=== PATIENT | female | born 1975 | race Caucasian/White ===

== ENCOUNTER 2020-06-07 08:59 | Outpatient (REF) | payer OTHER, SELFPAY ==
[2020-06-07 11:41] LABS: Alanine Aminotransferase 24 U/L (0-31); Anion Gap 16 (12-20); Aspartate Amino Transferase 14 U/L (5-31); Blood Urea Nitrogen 13 mg/dL (9-16); Calcium 9.3 mg/dL (8.4-10.2); Carbon Dioxide 24 mmol/L (22-29); Chloride 102 mmol/L (96-108); Cholesterol 159 mg/dL; Estimated Glomerular Filt Rate > 60; Glucose Fasting 160 mg/dL (60-99); HDL Cholesterol 57 mg/dL; LDL Cholesterol Calculated 78 mg/dl; Potassium 4.6 mmol/l (3.3-5.1); Sodium 137 mmol/L (135-145); Triglycerides 120 mg/dL
[2020-06-07 11:48] LABS: Estimated Average Glucose 163 mg/dL; Hemoglobin A1c % 7.3 %
== END 2020-06-07 09:00 | disposition home or self-care (01) ==
LOC: HO.HMGCLDS 08:59
PROVIDERS: PCP Internal Medicine; Visit Provider Internal Medicine
DX: E11.65 Type 2 diabetes mellitus with hyperglycemia (principal); E78.5 Hyperlipidemia, unspecified; I10 Essential (primary) hypertension
CPT/HCPCS: 80048; 80061; 83036; 84450; 84460

== ENCOUNTER 2022-01-25 10:49 | Outpatient (REF) | payer OTHER, SELFPAY ==
[2022-01-25 14:11] LABS: Estimated Average Glucose 272 mg/dL; Hemoglobin A1c % 11.1 %
[2022-01-25 14:22] LABS: Creatinine Urine 58.26 mg/dL; Microalbum/Creatinine Ratio Ur 53.2 ug/mg cr
[2022-01-25 14:36] LABS: Alanine Aminotransferase 35 U/L (0-31); Albumin Level 4.1 g/dL (3.5-5.0); Alkaline Phosphatase 136 U/L (39-117); Anion Gap 17 (12-20); Aspartate Amino Transferase 22 U/L (5-31); Bilirubin Total 0.3 mg/dL (0.0-1.0); Blood Urea Nitrogen 14 mg/dL (9-16); Calcium 9.8 mg/dL (8.4-10.2); Carbon Dioxide 23 mmol/L (22-29); Chloride 97 mmol/L (96-108); Cholesterol 185 mg/dL; Estimated Glomerular Filt Rate 58; Glucose Fasting 434 mg/dL (60-99); HDL Cholesterol 54 mg/dL; LDL Cholesterol Calculated 67 mg/dl; Potassium 5.1 mmol/L (3.3-5.1); Sodium 132 mmol/L (135-145); Total Protein 7.3 g/dL (6.5-8.0); Triglycerides 320 mg/dL
[2022-01-27 09:06] LABS: LDL Cholesterol Direct 100 mg/dL (<100)
== END 2022-01-25 10:50 | disposition home or self-care (01) ==
LOC: HO.HMGCLDS 10:49
PROVIDERS: PCP Internal Medicine; Visit Provider Internal Medicine
DX: E78.5 Hyperlipidemia, unspecified (principal); I10 Essential (primary) hypertension; E11.65 Type 2 diabetes mellitus with hyperglycemia
CPT/HCPCS: 36415; 80053; 80061; 82043; 83036; 83721

== ENCOUNTER 2022-06-23 08:36 | Outpatient (REF) | payer OTHER, SELFPAY ==
--- NOTE | ~2022-06-23 | US_ITS ---
EXAMINATION: US ABDOMEN COMPLETE CLINICAL INFORMATION: Right upper quadrant pain. COMPARISON: Ultrasound abdomen complete dated 10/01/2018 and 01/31/2018. TECHNIQUE: Real-time imaging of the abdominal viscera. FINDINGS: PANCREAS: Normal. ABDOMINAL AORTA: The proximal, mid, and distal segments are normal in caliber. INFERIOR VENA CAVA: Visualized portions are normal. LIVER: The liver is normal in size. The liver contour is normal. There is diffuse increased liver parenchymal echogenicity, consistent with hepatic steatosis. No focal hepatic lesion. There is no intrahepatic biliary duct dilatation seen. GALLBLADDER: The gallbladder is physiologically distended. Multiple mobile gallstones are present. No evidence of gallbladder wall thickening or pericholecystic fluid. COMMON BILE DUCT: Normal in caliber measuring 0.3 cm in diameter. RIGHT KIDNEY: No hydronephrosis. No renal calculi or focal parenchymal lesions. The kidney measures 11.2 cm in maximum dimension. LEFT KIDNEY: No hydronephrosis. No renal calculi or focal parenchymal lesions. The kidney measures 11.0 cm in maximum dimension. SPLEEN: Normal. The spleen measures 9.7 cm in maximum dimension. FREE FLUID: None. US/US abdomen complete IMPRESSION: 1. Cholelithiasis without evidence of cholecystitis. 2. Hepatic steatosis.
[2022-06-23 12:20] LABS: Microalbum/Creatinine Ratio Ur 14.8 ug/mg cr
[2022-06-23 12:22] LABS: Estimated Average Glucose 212 mg/dL
[2022-06-23 13:36] LABS: Alanine Aminotransferase 26 U/L (0-31); Anion Gap 12 (12-20); Aspartate Amino Transferase 16 U/L (5-31); Blood Urea Nitrogen 14 mg/dL (9-16); Calcium 9.1 mg/dL (8.4-10.2); Carbon Dioxide 25 mmol/L (22-29); Chloride 104 mmol/L (96-108); Cholesterol 163 mg/dL; Estimated Glomerular Filt Rate > 60; Glucose Fasting 218 mg/dL (60-99); HDL Cholesterol 61 mg/dL; LDL Cholesterol Calculated 87 mg/dl; Potassium 4.3 mmol/L (3.3-5.1); Sodium 137 mmol/L (135-145); Triglycerides 79 mg/dL; Vitamin D 25-OH Total 52.9 ng/mL (>30)
== END 2022-06-23 08:37 | disposition home or self-care (01) ==
LOC: HO.HMGCX 08:36
PROVIDERS: Absent Provider Internal Medicine; PCP Internal Medicine; Visit Provider Internal Medicine
DX: R10.11 Right upper quadrant pain (principal); R11.2 Nausea with vomiting, unspecified; E11.65 Type 2 diabetes mellitus with hyperglycemia; E78.5 Hyperlipidemia, unspecified; I10 Essential (primary) hypertension
CPT/HCPCS: 36415; 76700; 80048; 80061; 82043; 82306; 83036; 84450; 84460

== ENCOUNTER → 2022-12-01 12:49 | Outpatient (BNVA) | payer OTHER, SELFPAY | PROVIDERS: PCP Internal Medicine; Visit Provider Internal Medicine Endocrinology, Diabetes & Metabolism | DX: E11.65 Type 2 diabetes mellitus with hyperglycemia (principal); E78.5 Hyperlipidemia, unspecified; Z83.3 Family history of diabetes mellitus; Z79.899 Other long term (current) drug therapy; Z79.84 Long term (current) use of oral hypoglycemic drugs | CPT/HCPCS: 82947 ==

== ENCOUNTER 2023-07-12 09:01 | Outpatient (AMB) | payer OTHER, SELFPAY ==
--- NOTE | 2023-07-12 09:03 | MHC.PC.OV ---
Vital Signs 07/12/23 09:07 Height 5 ft 5 in Weight 145 lb 4 oz BMI 24.2 BP 115/78 Blood Pressure Location Lt brachial Position Sitting Pulse 76 Pulse Source Pulse Oximeter Pulse Oximetry (%) 100 Oxygen Delivery Method Room Air Intake Visit Reasons: Medication Follow Up Intake Note: Pt is here to follow up on medications and is fasting today Allergies BEES Allergy (Unknown, Uncoded 07/12/23 09:10) swelling Medication List - Last Reconciled 07/12/23 by Luann Gomez MD atorvastatin 20 mg PO DAILY blood sugar diagnostic (OneTouch Ultra Test strips) As directed tests 4 X/day blood-glucose meter (OneTouch Ultra2 Meter kit) As directed tests 4X/day escitalopram oxalate 20 mg PO DAILY glipizide 5 mg PO QAM lancets (FreeStyle Lancets) twice a day ac lisinopril 10 mg PO DAILY metformin 1,000 mg PO BID 30 days pantoprazole 40 mg PO DAILY Tobacco use date assessed: 07/12/23 Dental Screening Dental Screen Date: 07/12/23 Did you have a dental visit in the last 12 months?: No Did you have a dental problem in the last 6 months where you did not have access to dental care?: No Was dental information given to patient?: Patient has dentist HPI Medication Follow Up HPI Details 47-year-old lady here today for follow-up on her diabetes mellitus and dyslipidemia. Has been taking her medications as directed but does not check her sugars. Has been trying to follow recommended diet but does not get any regular exercise. She had diabetes retinopathy checked at [facility] last September 2022 with no retinopathy seen. Hemoglobin A1c today checked at the clinic is at 7.5%, unchanged from last visit. She has been complaining of feeling tired all the time, no energy, denies chest pain, palpitations, shortness of breath or lightheadedness. Does not want to get any vaccinations. She has depression, currently stable on escitalopram, does not want to see a therapist. Also has been diagnosed to have multiple gallstones, currently asymptomatic, does not want to get any surgical intervention done at present time. Has chronic heartburn, currently controlled on pantoprazole. Has not had any upper endoscopy or screening colonoscopy done , as per recommendation of GI last year and did not do the upper GI series test that was also ordered [facility] Medical History (Updated 07/13/23 @ 00:42 by Luann Gomez MD) Immunization declined Depression Fracture of navicular bone of right foot with routine healing Preeclampsia Heartburn Essential hypertension Cholelithiasis depression Dyslipidemia Diabetes mellitus with hyperglycemia, without long-term current use of insulin Surgical History History of section Family History Father CAD (coronary artery disease) Diabetes mellitus HTN (hypertension) Hyperlipidemia Mother Anxiety Depression Brother GERD (gastroesophageal reflux disease) Son No problems noted. Maternal Grandfather Substance use disorder Maternal Aunt Substance use disorder Maternal Uncle Substance use disorder Social History Housing: House Alcohol intake: former Patient Tobacco Use Status: Former Tobacco user e-Cigarette/Vaping Use: Never Used service: No Current occupational status: unemployed Cognitive needs: No Hearing needs: No Vision needs: Yes Questionnaire PHQ-9 Over the last 2 weeks, how often have you been bothered by any of the following problems? 1. Little interest or pleasure in doing things: several days 2. Feeling down, depressed, or hopeless: not at all 3. Trouble falling or staying asleep, or sleeping too much: several days 4. Feeling tired or having little energy: nearly every day 5. Poor appetite or overeating: several days 6. Feeling bad about yourself - or that you are a failure or have let yourself or your family down: several days 7. Trouble concentrating on things, such as reading the newspaper or watching television: not at all 8. Moving or speaking so slowly that other people could have noticed. Or the opposite - being so fidgety or restless that you have been moving around a lot more than usual: not at all 9. Thoughts that you would be better off or of hurting yourself in some way: not at all Total score: 7 Depression Screening Interpretation: Positive Depression Screening Follow-up: Existing condition and In treatment Depression Screening Done: Yes 13673 - PHQ-9 Billing: Yes Source: Developed by Drs. Efrain Bejarano, AliaDickson Thibodeaux and colleagues, with an educational kenneth from [employer]. Thrive Questionnaire Date Thrive assessed: 07/12/23 I am a: Patient What is your living situation today?: I have a steady place to live Within the past 12 months, did the food you bought not last and you didn't have the money to get more?: Never true Within the past 12 months, did you worry whether your food would run out before you got money to buy more?: Never true Do you have trouble paying for medicines?: No Do you have trouble getting transportation to medical appointments?: No Do you have trouble paying your heating and electricity bill?: No Do you have trouble taking care of your child, family member or friend?: No Do you have trouble with day-to-day activities such as bathing, preparing meals, shopping, managing finances, etc.?: No Are you currently unemployed and looking for a job?: No Are you interested in more education?: No Currently or been in a relationship where the following occur: controlled financially and controlled emotionally AUDIT C Alcohol Use Questionnaire (AUDIT-C) 1. How often do you have a drink containing alcohol?: Never Total Score: 0 PERRY-7 AMB Questionnaire PERRY-7 Date PERRY - 7 assessed: 12/22/21 Source: Developed by Drs. Efrain Bejarano, Dickson Paredes and colleagues, with an educational kenneth from [employer]. Review of Systems Const Reports as per HPI, Denies fever(s), Denies headache(s), Denies malaise, Denies weakness and Reports weight loss Eyes Denies change in vision, Denies eye discharge and Reports other (Up-to-date with her eye exam, goes to [facility] eye care) ENT Denies dizziness, Denies headache(s), Denies nasal congestion, Denies nasal discharge and Denies sore throat Card Denies chest pain, Denies lightheadedness, Denies palpitations and Denies dyspnea Resp Denies chest congestion, Denies cough and Denies dyspnea GI Denies abdominal pain, Denies melena, Denies hematochezia, Denies change in bowel habits and Denies heartburn (Controlled on pantoprazole) Denies urinary frequency, Denies dysuria and Denies urinary urgency Musc Reports no additional complaints Skin/Breast Denies lesions and Denies rash Neuro Denies dizziness, Denies headache(s) and Denies weakness Psych Reports as per HPI Endo Denies polydipsia, Denies polyuria and Denies palpitations Gaston/Lymph Denies easy bleeding and Denies easy bruising Aller/Immun Reports no additional complaints Physical exam (Primary Care) Vital Signs: Last Vital Signs Pulse 76 07/12/23 09:07 BP 115/78 07/12/23 09:07 Pulse Ox 100 07/12/23 09:07 Oxygen Delivery Method Room Air 07/12/23 09:07 BMI result Body Mass Index 24.2 Tobacco/Smoking Status: Tobacco use Status Tobacco use date assessed 07/12/23 07/12/23 09:11 Patient Tobacco Use Status Former Tobacco user 07/12/23 09:03 e-Cigarette/Vaping Use Never Used 07/12/23 09:03 Depression Screening Interpretation: Positive Depression Screening Follow-up: Existing condition and In treatment Thrive Assessment: Date of Thrive Assessment Date Thrive assessed 12/22/21 07/12/23 09:03 Currently or been in a relationship where the following occur: controlled financially and controlled emotionally Const Other: Alert oriented x3, no acute cardiorespiratory distress, ambulatory with normal gait HENMT Mouth: Normal oral and palatal mucosa present and moist mucous membranes Eyes General: appearance normal, both eyes and all related structures Neck Neck: Yes normal visual inspection, Yes full ROM, Yes no lymphadenopathy and Yes supple Resp Auscultation: clear to auscultation bilaterally Cardio Other: S1-S2 present regular rate and rhythm GI Other: Normal bowel sounds, nontender, no mass palpated Back/Spine/Pelvis Back: No back tenderness Skin General skin exam: no rashes or lesions noted Neuro General: gait normal, tone normal, Normal light touch and pain sensation, no focal motor deficits, CN's II-XI intact bilaterally and normal sensation to monofilament Extrem General: Yes normal to inspection, Yes full ROM, Yes no pedal edema and Yes normal gait Psych Appearance: grossly normal and well kempt Mental Status: mental status grossly normal Speech and movement: Normal speech and movement present Affect: Indifferent affect present Attitude: cooperative Thought process: Normal thought process present Thought content: Normal thought content present Results AMB Hemoglobin A1c AMB Hemoglobin A1c 7.5 % Last Edit by Prabha Zafar CMA on 07/12/23 09:42 Results Reviewed Results Reviewed: Laboratory Last Values Hgb A1c (Clinic) 7.5 % (4.0-6.0) H 07/12/23 09:41 Assessment and Plan Assessment & Plan (1) Diabetes mellitus with hyperglycemia, without long-term current use of insulin: Code(s): E11.65 - Type 2 diabetes mellitus with hyperglycemia Plan: Hemoglobin A1c today is 7.5%, unchanged from last check, currently taking metformin 1000 mg twice a day and glipizide 5 mg in am. Will add pioglitazone 15 mg once a day, reinforced importance of following diabetic diet and getting regular exercise. Advised to check blood sugar at least twice a day before meals and keep a log of the readings. Bring on next visit for review. Currently up-to-date with her diabetes retinopathy screening but declines getting vaccines at present time. (2) Dyslipidemia: Code(s): E78.5 - Hyperlipidemia, unspecified Plan: Fasting lipids ordered today. Currently on atorvastatin 20 mg daily, reinforced adherence to healthy eating habits and getting regular exercise. (3) Immunization declined: Code(s): Z28.21 - Immunization not carried out because of patient refusal (4) Essential hypertension: Code(s): I10 - Essential (primary) hypertension Plan: Blood pressure at goal of less than 130/80. Continue lisinopril 10 mg daily. Reinforced importance of following a low sodium diet, getting regular exercise, and lowering stress levels. (5) Depression: Code(s): F32.A - Depression, unspecified Qualifiers: Depression Type: major depressive disorder Major depression recurrence: recurrent Active/Remission status: currently active Major depression episode severity: moderate Qualified Code(s): F33.1 - Major depressive disorder, recurrent, moderate Plan: Declines referral for therapy, will continue on escitalopram 20 mg once a day (6) Fatigue: Code(s): R53.83 - Other fatigue Qualifiers: Fatigue type: chronic, unspecified Qualified Code(s): R53.82 - Chronic fatigue, unspecified Plan: Ordered hemoglobin hematocrit level, basic metabolic panel, vitamin-D level Orders: Orders Aspartate Amino Transferase 07/12/23 E11.65 - Type 2 diabetes mellitus with hyperglycemia, E78.5 - Hyperlipidemia, unspecified, F32.A - Depression, unspecified, I10 - Essential (primary) hypertension, R12 - Heartburn Alanine Aminotransferase 07/12/23 E11.65 - Type 2 diabetes mellitus with hyperglycemia, E78.5 - Hyperlipidemia, unspecified, F32.A - Depression, unspecified, I10 - Essential (primary) hypertension, R12 - Heartburn Microalbumin, Random (w Creat) 07/12/23.65 - Type 2 diabetes mellitus with hyperglycemia, E78.5 - Hyperlipidemia, unspecified, F32.A - Depression, unspecified, I10 - Essential (primary) hypertension, R12 - Heartburn AMB Hemoglobin A1c 07/12/23 E11.65 - Type 2 diabetes mellitus with hyperglycemia, E78.5 - Hyperlipidemia, unspecified, F32.A - Depression, unspecified, I10 - Essential (primary) hypertension, R12 - Heartburn Basic Metabolic Panel Fasting 07/12/23.65 - Type 2 diabetes mellitus with hyperglycemia, E78.5 - Hyperlipidemia, unspecified, F32.A - Depression, unspecified, I10 - Essential (primary) hypertension, R12 - Heartburn Lipid Panel 07/12/23.65 - Type 2 diabetes mellitus with hyperglycemia, E78.5 - Hyperlipidemia, unspecified, F32.A - Depression, unspecified, I10 - Essential (primary) hypertension, R12 - Heartburn Hemoglobin and Hematocrit 07/12/23.65 - Type 2 diabetes mellitus with hyperglycemia, E78.5 - Hyperlipidemia, unspecified, F32.A - Depression, unspecified, I10 - Essential (primary) hypertension, R12 - Heartburn Vitamin D 25-OH Total 07/12/23.65 - Type 2 diabetes mellitus with hyperglycemia, E78.5 - Hyperlipidemia, unspecified, F32.A - Depression, unspecified, I10 - Essential (primary) hypertension, R12 - Heartburn Medications: New pioglitazone 15 mg PO DAILY 90 tabs 1RF Changed From blood-glucose meter ([employer] Ultra2 Meter kit) As directed tests 4X/day 1 ea 0RF To blood-glucose meter As directed tests 4X/day 1 ea 0RF Refilled lancets (FreeStyle Lancets) twice a day ac 100 ea 5RF E11.65 - Type 2 diabetes mellitus with hyperglycemia blood sugar diagnostic (OneTouch Ultra Test strips) As directed tests 4 X/day 100 ea 5RF Coding Level of Care Code Est Pt Level 4 (61393) Diagnoses Diabetes mellitus with hyperglycemia, without long-term current use of insulin E11.65 Dyslipidemia E78.5 Immunization declined Z28.21 Essential hypertension I10 Moderate episode of recurrent major depressive disorder F33.1 Depression Type: major depressive disorder Major depression recurrence: recurrent Active/Remission status: currently active Major depression episode severity: moderate Chronic fatigue R53.82 Fatigue type: chronic, unspecified
[2023-07-12 09:07] VITALS: BP 115/78; PULSE 76; O2SAT 100; BMI 24.2
== END 2023-07-12 09:44 | disposition home or self-care (01) ==
PROVIDERS: PCP Internal Medicine; Visit Provider Internal Medicine
DX: E11.65 Type 2 diabetes mellitus with hyperglycemia (principal); F33.1 Major depressive disorder, recurrent, moderate; E78.5 Hyperlipidemia, unspecified; Z28.21 Immunization not carried out because of patient refusal; I10 Essential (primary) hypertension; R53.82 Chronic fatigue, unspecified
CPT/HCPCS: 83036; 99214

== ENCOUNTER 2023-07-12 09:37 | Outpatient (REF) | payer OTHER, SELFPAY | END 2023-07-12 09:38 | disposition home or self-care (01) | LOC: HO.LAB 09:37 | PROVIDERS: Visit Provider Internal Medicine | DX: Z13.89 Encounter for screening for other disorder (principal) ==

== ENCOUNTER 2023-07-12 09:46 | Outpatient (REF) | payer OTHER, SELFPAY ==
[2023-07-12 13:44] LABS: Hematocrit 31.1 % (37.0-47.0); Hemoglobin 8.8 g/dl (12.0-16.0)
[2023-07-12 14:12] LABS: Alanine Aminotransferase 14 U/L (0-31); Anion Gap 12 (12-20); Aspartate Amino Transferase 15 U/L (5-31); Blood Urea Nitrogen 18 mg/dL (9-16); Calcium 9.6 mg/dL (8.4-10.2); Carbon Dioxide 25 mmol/L (22-29); Chloride 104 mmol/L (96-108); Cholesterol 146 mg/dL (<200); Estimated Glomerular Filt Rate > 60; Glucose Fasting 162 mg/dL (60-99); HDL Cholesterol 61 mg/dL (>40); LDL Cholesterol Calculated 73 mg/dL (<100); Potassium 3.8 mmol/L (3.3-5.1); Sodium 137 mmol/L (135-145); Triglycerides 61 mg/dL (<150)
[2023-07-12 14:13] LABS: Creatinine Urine 200.54 mg/dL; Microalbum/Creatinine Ratio Ur 4.9 ug/mg cr (<30)
[2023-07-12 14:16] LABS: Vitamin D 25-OH Total 82.6 ng/mL (>30)
== END 2023-07-12 09:47 | disposition home or self-care (01) ==
LOC: HO.HMGCLDS 09:46
PROVIDERS: PCP Internal Medicine; Visit Provider Internal Medicine
DX: E11.65 Type 2 diabetes mellitus with hyperglycemia (principal); E78.5 Hyperlipidemia, unspecified; I10 Essential (primary) hypertension; F32.A Depression, unspecified; R12 Heartburn
CPT/HCPCS: 36415; 80048; 80061; 82043; 82306; 82570; 84450; 84460; 85014; 85018

== ENCOUNTER 2024-11-11 09:22 | Outpatient (REF) | payer OTHER, SELFPAY ==
[2024-11-11 14:49] LABS: Creatinine Urine 177.71 mg/dL; Microalbum/Creatinine Ratio Ur 5.6 ug/mg cr (<30)
== END 2024-11-11 09:23 | disposition home or self-care (01) ==
LOC: HO.LAB 09:22
PROVIDERS: PCP Internal Medicine; Visit Provider Internal Medicine
DX: Z00.01 Encounter for general adult medical examination with abnormal findings (principal); R12 Heartburn; F41.9 Anxiety disorder, unspecified; F32.A Depression, unspecified; E11.65 Type 2 diabetes mellitus with hyperglycemia; E78.5 Hyperlipidemia, unspecified; Z79.899 Other long term (current) drug therapy; Z71.89 Other specified counseling; Z28.21 Immunization not carried out because of patient refusal
CPT/HCPCS: 82043; 82570; 83036; 96127

== ENCOUNTER 2024-11-11 09:22 | Outpatient (AMB) | payer OTHER, SELFPAY ==
--- NOTE | 2024-11-11 09:30 | MHC.PC.OV ---
Vital Signs 11/11/24 09:39 Height 5 ft 4.5 in Weight 147 lb BMI 24.8 BP 112/84 Position Sitting Respiration 16 Pulse 87 Pulse Source Pulse Oximeter Temp 98.4 F Temp Source Oral Pulse Oximetry (%) 98 Oxygen Delivery Method Room Air Intake Visit Reasons: Annual PE Intake Note: Pt is here today for PE Allergies BEES Allergy (Unknown, Uncoded 11/11/24 09:45) swelling Medication List - Last Reconciled 11/11/24 by Luann Gomez MD atorvastatin 20 mg PO DAILY blood sugar diagnostic (FreeStyle Test strips) As directed to test blood sugar once a day blood-glucose meter As directed tests 4X/day escitalopram oxalate 20 mg PO DAILY glipizide 5 mg PO QAM lancets (FreeStyle Lancets) twice a day ac lisinopril 10 mg PO DAILY metformin 1,000 mg PO BID pantoprazole 40 mg PO DAILY Tobacco use date assessed: 11/11/24 Dental Screening Dental Screen Date: 11/11/24 Did you have a dental visit in the last 12 months?: No Did you have a dental problem in the last 6 months where you did not have access to dental care?: No Was dental information given to patient?: Patient has dentist HPI Annual PE HPI Details 49-year-old lady with type 2 diabetes mellitus, currently on metformin and glipizide, has history of depression controlled on escitalopram, hypertension, dyslipidemia, and history of anemia, here today for her physical exam. She is up-to-date with her cervical cancer screening, last done in [place] 10/18/2022 with negative findings. [facility] Medical History (Updated 11/11/24 @ 10:13 by Luann Gomez MD) Anxiety and depression Anemia Immunization declined Depression Fracture of navicular bone of right foot with routine healing Preeclampsia Heartburn Essential hypertension Cholelithiasis depression Dyslipidemia Diabetes mellitus with hyperglycemia, without long-term current use of insulin Surgical History History of section Family History Father CAD (coronary artery disease) Diabetes mellitus HTN (hypertension) Hyperlipidemia Mother Anxiety Depression Brother GERD (gastroesophageal reflux disease) Son No problems noted. Maternal Grandfather Substance use disorder Maternal Aunt Substance use disorder Maternal Uncle Substance use disorder Social History Housing: House Alcohol intake: former Patient Tobacco Use Status: Former Tobacco user e-Cigarette/Vaping Use: Never Used service: No Current occupational status: unemployed Cognitive needs: No Hearing needs: No Vision needs: Yes Questionnaire PHQ-9 Over the last 2 weeks, how often have you been bothered by any of the following problems? 82352 - PHQ-9 Billing: Patient declined-do not bill Source: Developed by Drs. Efrain Bejarano, Alia Nolasco, Dickson Nguyễn and colleagues, with an educational kenneth from [employer]. Thrive Questionnaire Date Thrive assessed: 11/11/24 I am a: Patient What is your living situation today?: I have a steady place to live Within the past 12 months, did the food you bought not last and you didn't have the money to get more?: Sometimes True Within the past 12 months, did you worry whether your food would run out before you got money to buy more?: Sometimes True Do you have trouble paying for medicines?: No Do you have trouble getting transportation to medical appointments?: No Do you have trouble paying your heating and electricity bill?: Yes Do you have trouble taking care of your child, family member or friend?: No Do you have trouble with day-to-day activities such as bathing, preparing meals, shopping, managing finances, etc.?: No Are you currently unemployed and looking for a job?: Yes Are you interested in more education?: No THRIVE Score: 3 AUDIT C Alcohol Use Questionnaire (AUDIT-C) 1. How often do you have a drink containing alcohol?: Never Total Score: 0 PERRY-7 AMB Questionnaire PERRY-7 Date PERRY - 7 assessed: 11/11/24 Feeling nervous, anxious, or on edge: 3 = Nearly every day Not being able to stop or control worryin = Several days Worrying too much about different things: 2 = More than half the days Trouble relaxin = More than half the days Being so restless that it is hard to sit still: 1 = Several days Becoming easily annoyed or irritable: 0 = Not at all Feeling afraid as if something awful might happen: 0 = Not at all Total PERRY-7 score (0-4 normal; 5-9 mild; 10-14 moderate; 15-21 severe): 9 Source: Developed by Drs. Efrain Bejarano, Alia Nolasco, Dickson Nguyễn and colleagues, with an educational kenneth from [employer]. Physical exam (Primary Care) Vital Signs: Last Vital Signs Temp 98.4 F 11/11/24 09:39 Pulse 87 11/11/24 09:39 Resp 16 11/11/24 09:39 BP 112/84 11/11/24 09:39 Pulse Ox 98 11/11/24 09:39 Oxygen Delivery Method Room Air 11/11/24 09:39 BMI result Body Mass Index 24.8 Tobacco/Smoking Status: Tobacco use Status Tobacco use date assessed 11/11/24 11/11/24 09:44 Patient Tobacco Use Status Former Tobacco user 11/11/24 09:30 e-Cigarette/Vaping Use Never Used 11/11/24 09:30 Thrive Assessment: Date of Thrive Assessment Date Thrive assessed 07/12/23 11/11/24 09:30 Results AMB Hemoglobin A1c AMB Hemoglobin A1c 6.3 % Last Edit by Samantha Leone CMA on 11/11/24 09:48 Results Reviewed Results Reviewed: Laboratory Last Values Hgb A1c (Clinic) 6.3 % (4.0-6.0) H 11/11/24 09:47 Coding Diagnoses Heartburn R12 Assessment & Plan Assessment & Plan (1) Heartburn: Code(s): R12 - Heartburn Category: Medical Orders: Orders AMB Hemoglobin A1c Today E11.65 - Type 2 diabetes mellitus with hyperglycemia Medications: New hydroxyzine HCl 10 mg PO BEDTIME PRN 30 tabs 1RF Acute anxiety attacks F32.A - Depression, unspecified, F41.9 - Anxiety disorder, unspecified Discontinued escitalopram oxalate Discontinued Reason: Doctor's Order 20 mg PO DAILY 90 tabs 0RF
[2024-11-11 09:39] VITALS: BP 112/84; PULSE 87; RESP 16; TEMP 36.9; O2SAT 98; BMI 24.8
== END 2024-11-11 10:47 | disposition home or self-care (01) ==
LOC: HO.HMCC 09:23
PROVIDERS: PCP Internal Medicine; Visit Provider Internal Medicine
DX: E11.65 Type 2 diabetes mellitus with hyperglycemia (principal)

== ENCOUNTER 2025-04-07 07:41 | Outpatient (REF) | payer OTHER, SELFPAY ==
[2025-04-07 12:47] LABS: Anion Gap 13 (12-20)
[2025-04-07 12:52] LABS: Alanine Aminotransferase 14 U/L (0-31); Albumin Level 4.4 g/dL (3.5-5.0); Alkaline Phosphatase 66 U/L (39-117); Aspartate Amino Transferase 20 U/L (5-31); Blood Urea Nitrogen 19 mg/dL (9-16); Calcium 9.3 mg/dL (8.4-10.2); Carbon Dioxide 24 mmol/L (22-29); Chloride 107 mmol/L (96-108); Cholesterol 171 mg/dL (<200); Estimated Glomerular Filt Rate > 60; HDL Cholesterol 68 mg/dL (>40); Iron 13 mcg/dL (30-160); Percent Iron Saturation 3 % (15-50); Potassium 4.1 mmol/L (3.3-5.1); Sodium 140 mmol/L (135-145); Total Iron Binding Capacity 399 mcg/dL (228-428); Total Protein 7.2 g/dL (6.5-8.0); Triglycerides 116 mg/dL (<150); Unsaturated Iron Binding 386 ug/dL
== END 2025-04-07 07:42 | disposition home or self-care (01) ==
LOC: HO.HMGCLDS 07:41
PROVIDERS: PCP Internal Medicine; Visit Provider Internal Medicine
DX: I10 Essential (primary) hypertension (principal); E11.65 Type 2 diabetes mellitus with hyperglycemia; E78.5 Hyperlipidemia, unspecified; K80.20 Calculus of gallbladder without cholecystitis without obstruction; D64.9 Anemia, unspecified; F33.1 Major depressive disorder, recurrent, moderate; R12 Heartburn
CPT/HCPCS: 36415; 80053; 80061; 82306; 83036; 83540; 85025

== ENCOUNTER 2025-04-29 09:31 | Outpatient (AMB) | payer OTHER, SELFPAY ==
--- NOTE | 2025-04-29 09:32 | A.OFFPC_ITS ---
Vital Signs 04/29/25 09:33 Height 5 ft 4.5 in Weight 149 lb BMI 25.2 BP 144/80 H Blood Pressure Location Lt brachial Position Sitting Respiration 16 Pulse 96 Pulse Source Pulse Oximeter Temp 98.6 F Temp Source Oral Pulse Oximetry (%) 100 Oxygen Delivery Method Room Air Intake Visit Reasons: 3m follow up reschedule Intake Note: Pt is here today for her 3mo. 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 Required: No Allergies BEES Allergy (Unknown, Uncoded 05/03/25 21:11) swelling Medication List - Last Reconciled 05/03/25 by Luann Gomez MD atorvastatin 20 mg PO DAILY blood sugar diagnostic (FreeStyle Test strips) As directed to test blood sugar once a day blood-glucose meter As directed tests 4X/day ferrous fumarate 324 mg PO DAILY glipizide 5 mg PO QAM lancets (FreeStyle Lancets) twice a day ac lisinopril 10 mg PO DAILY lorazepam 0.5 mg PO DAILY PRN metformin 1,000 mg PO BID pantoprazole 40 mg PO DAILY Tobacco use date assessed: 04/29/25 Dental Screening Dental Screen Date: 04/29/25 Did you have a dental visit in the last 12 months?: No Did you have a dental problem in the last 6 months where you did not have access to dental care?: No Was dental information given to patient?: Patient has dentist HPI 3m follow up reschedule HPI Details 49-year-old female presenting with anemia and diabetes mellitus. The anemia has been worsening, has pica , craving ice and sugar . She reports not taking iron supplements regularly as she is afraid of getting constipated again, which most likely is the reason for her fatigue, difficulty sleeping. She has diabetes mellitus with a recent A1c of 6.7%. She attributes her elevated blood glucose levels to poor dietary habits, and no exercise . Overdue for her the diabetic retinopathy screening, previously was being seen at [facility]. Has dyslipidemia currently on atorvastatin 20 mg daily with latest fasting lipids within normal limits. Has generalized anxiety disorder, would like to have something on hand to take as needed for acute anxiety attacks. He previously was on escitalopram 20 mg daily which she states did not really help, and has been prescribed hydroxyzine which she does not want to take as it makes her very sleepy. Declined all immunizations offered [facility] Medical History (Updated 05/03/25 @ 21:33 by Luann Gomez MD) Colon cancer screening declined Generalized anxiety disorder Iron deficiency anemia Immunization declined Depression Fracture of navicular bone of right foot with routine healing Preeclampsia Heartburn Essential hypertension Cholelithiasis depression Dyslipidemia Diabetes mellitus with hyperglycemia, without long-term current use of insulin Surgical History History of section Family History Father CAD (coronary artery disease) Diabetes mellitus HTN (hypertension) Hyperlipidemia Mother Anxiety Depression Brother GERD (gastroesophageal reflux disease) Son No problems noted. Maternal Grandfather Substance use disorder Maternal Aunt Substance use disorder Maternal Uncle Substance use disorder Social History Housing: House Alcohol intake: former Patient Tobacco Use Status: Former Tobacco user e-Cigarette/Vaping Use: Never Used service: No Current occupational status: unemployed Cognitive needs: No Hearing needs: No Vision needs: Yes Questionnaire PHQ-9 Over the last 2 weeks, how often have you been bothered by any of the following problems? 1. Little interest or pleasure in doing things: not at all 2. Feeling down, depressed, or hopeless: not at all 3. Trouble falling or staying asleep, or sleeping too much: not at all 4. Feeling tired or having little energy: not at all 5. Poor appetite or overeating: not at all 6. Feeling bad about yourself - or that you are a failure or have let yourself or your family down: not at all 7. Trouble concentrating on things, such as reading the newspaper or watching television: not at all 8. Moving or speaking so slowly that other people could have noticed. Or the opposite - being so fidgety or restless that you have been moving around a lot more than usual: not at all 9. Thoughts that you would be better off or of hurting yourself in some way: not at all Total score: 0 Depression Screening Interpretation: Negative Depression Screening Done: Yes 64515 - PHQ-9 Billing: Yes Source: Developed by Drs. Efrain Bejarano, Alia Dickson Hurley and colleagues, with an educational kenneth from [employer] Thrive Questionnaire Date Thrive assessed: 11/11/24 I am a: Patient What is your living situation today?: I choose not to answer this question Within the past 12 months, did the food you bought not last and you didn't have the money to get more?: I choose not to answer this question Within the past 12 months, did you worry whether your food would run out before you got money to buy more?: I choose not to answer this question Do you have trouble paying for medicines?: I choose not to answer this question Do you have trouble getting transportation to medical appointments?: I choose not to answer this question Do you have trouble paying your heating and electricity bill?: I choose not to answer this question Do you have trouble taking care of your child, family member or friend?: I choose not to answer this question Do you have trouble with day-to-day activities such as bathing, preparing meals, shopping, managing finances, etc.?: I choose not to answer this question Are you currently unemployed and looking for a job?: I choose not to answer this question Are you interested in more education?: I choose not to answer this question Please select the resources that you would like help with: None Currently or been in a relationship where the following occur: I choose not to answer THRIVE Score: 0 AUDIT C Alcohol Use Questionnaire (AUDIT-C) 1. How often do you have a drink containing alcohol?: Never Total Score: 0 PERRY-7 AMB Questionnaire PERRY-7 Date PERRY - 7 assessed: 11/11/24 Feeling nervous, anxious, or on edge: 1 = Several days Not being able to stop or control worryin = Several days Worrying too much about different things: 2 = More than half the days Trouble relaxin = Several days Being so restless that it is hard to sit still: 0 = Not at all Becoming easily annoyed or irritable: 2 = More than half the days Feeling afraid as if something awful might happen: 0 = Not at all Total PERRY-7 score (0-4 normal; 5-9 mild; 10-14 moderate; 15-21 severe): 7 Source: Developed by Drs. Efrain Bejarano, Dickson Paredes and colleagues, with an educational kenneth from [employer] PERRY-7 Assessment Billing PERRY-7 Assessment Tool: PERRY-7 Assessment 75698 (Declined taking anything on a daily basis, prescription sent for lorazepam to take as needed, refused therapy) Review of Systems Const Denies fever(s), Denies headache(s) and Reports weight loss Eyes Denies change in vision and Denies eye discharge ENT Denies dizziness, Denies headache(s), Denies nasal congestion, Denies nasal discharge and Denies sore throat Card Denies chest pain, Denies lightheadedness, Denies palpitations and Denies dyspnea Resp Denies chest congestion, Denies cough and Denies dyspnea GI Denies abdominal pain, Denies melena, Denies hematochezia, Denies change in bowel habits and Denies heartburn (Controlled on pantoprazole) Denies urinary frequency, Denies dysuria and Denies urinary urgency Musc Reports no additional complaints Skin/Breast Denies lesions and Denies rash Neuro Denies dizziness and Denies headache(s) Psych Reports as per HPI Endo Denies polydipsia, Denies polyuria and Denies palpitations Gaston/Lymph Denies easy bleeding and Denies easy bruising Aller/Immun Reports no additional complaints Physical exam (Primary Care) Vital Signs: Last Vital Signs Temp 98.6 F 04/29/25 09:33 Pulse 96 04/29/25 09:33 Resp 16 04/29/25 09:33 BP 144/80 H 04/29/25 09:33 Pulse Ox 100 04/29/25 09:33 Oxygen Delivery Method Room Air 04/29/25 09:33 BMI result Body Mass Index 25.2 Tobacco/Smoking Status: Tobacco use Status Tobacco use date assessed 04/29/25 04/29/25 09:36 Patient Tobacco Use Status Former Tobacco user 04/29/25 09:33 e-Cigarette/Vaping Use Never Used 04/29/25 09:33 PHQ-9: PHQ-9 Score PHQ-9: Total score 0 04/29/25 10:30 Depression Screening Interpretation: Negative Thrive Assessment: Date of Thrive Assessment Date Thrive assessed 11/11/24 04/29/25 09:33 Currently or been in a relationship where the following occur: I choose not to answer Const Other: Alert oriented x3, no acute cardiorespiratory distress, ambulatory with normal gait HENMT Mouth: Normal oral and palatal mucosa present and moist mucous membranes Eyes Other: Pain palpebral conjunctiva, anicteric Pupils: Equal, round and reactive pupils present EOM: EOMs intact bilaterally Neck Neck: Yes normal visual inspection, Yes full ROM, Yes no lymphadenopathy and Yes supple Resp Auscultation: clear to auscultation bilaterally Cardio Other: S1-S2 present regular rate and rhythm GI Other: Normal bowel sounds, nontender, no mass palpated 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) Back/Spine/Pelvis Back: No back tenderness Skin General skin exam: no rashes or lesions noted Neuro General: gait normal, tone normal, Normal light touch and pain sensation, no focal motor deficits, CN's II-XI intact bilaterally and normal sensation to monofilament Cranial nerves: Yes Equal, round and reactive pupils present Extrem General: Yes normal to inspection, Yes full ROM, Yes no pedal edema and Yes normal gait Psych Appearance: grossly normal and well kempt Mental Status: mental status grossly normal Speech and movement: Normal speech and movement present Affect: Indifferent affect present Results Reviewed Results Reviewed: connie: Latia Magana Age/Sex: 49/F : 1975 Unit#: [id number] Attend Dr: Luann Gomez MD Re04/07/25 Status: DEP REF Location: [facility] Disch: SPEC : [id number] JESUS: 04/07/25 STATUS: COMP REQ : [id number] RECD: 04/07/25-[address]: Luann Gomez MD COMP: 04/07/25 ENTERED: 04/07/25 [facility] DR: ORDERED: CBC Auto Diff Test Result Flag Reference WBC 8.6 4.8-10.8 X10*3/uL RBC 4.63 4.20-5.50 X10*6/uL HGB 8.2 L 12.0-16.0 g/dl HCT 30.7 L 37.0-47.0 % MCV 66.3 L 80.0-98.0 fL MCH 17.7 L 27.0-33.0 pg MCHC 26.7 L 31.0-35.0 g/dl RDW 20.3 H 11.0-16.0 % PLT 586 H 160-400 X10*3/uL MPV 8.9 L 9.4-12.3 fL Neut Pct Auto 55.2 45-73 % ImGran Pct Auto 0.3 0.0-0.4 % Lymp Pct Auto 32.6 20-40 % [place] Pct Auto 7.8 2-11 % Eos Pct Auto 2.4 0-4 % Baso Pct Auto 1.7 0-2 % NRBC Pct Auto 0.0 0.0-0.2 /100WBC ANC Neut Abs # 4.7 2.0-8.3 x10*3/uL ImGran Abs Auto 0.03 0.00-0.03 X10*3/uL Lymph Abs Auto 2.8 1.2-4.9 X10*3/uL [place] Abs Auto 0.7 0.1-1.2 X10*3/uL Eos Abs Auto 0.2 0.0-0.4 X10*3/uL Baso Abs Auto 0.2 0.0-0.2 X10*3/uL NRBC Abs Auto 0.000 0.0-0.012 X10*3/uL Name: Latia Magana Age/Sex: 49/F : 1975 Unit#: [id number] Attend Dr: Luann Gomez MD Re04/07/25 Status: DEP REF Location: [facility] Disch: SPEC : [id number] JESUS: 04/07/25 STATUS: COMP REQ : [id number] RECD: 04/07/25-[address]: Luann Gomez MD COMP: 04/07/25-1242 ENTERED: 04/07/[address]: ORDERED: CMP Fast, IRON PROF, Lipid Panel, Vitamin D 25-OH Test Result Flag Reference Sodium 140 135-145 mmol/L Potassium 4.1 3.3-5.1 mmol/L CL 107 96-108 mmol/L CO2 24 22-29 mmol/L Gap 13 12-20 BUN 19 H 9-16 mg/dL Creat 0.93 0.5-1.4 mg/dL eGFR > 60 Chronic Kidney Disease: Estimated GFR < 60 mL/min/1.73m2 Severe Kidney Disease: Estimated GFR < 15 mL/min/1.73m2 FBS 164 H 60-99 mg/dL A fasting glucose of 126 mg/dl or greater on more than one occasion is considered diagnostic of diabetes. CA 9.3 8.4-10.2 mg/dL Iron 13 L 30-160 mcg/dL TIBC 399 228-428 mcg/dL Saturation 3 L 15-50 % UIBC 386 ug/dL Total Bili 0.3 0.0-1.0 mg/dL AST (GOT) 20 5-31 U/L ALT (GPT) 14 0-31 U/L Protein, Total 7.2 6.5-8.0 g/dL Alb 4.4 3.5-5.0 g/dL Triglyceride 116 <150 mg/dL Desirable Triglyceride: less than 150 mg/dL Borderline High Triglyceride 150-199 mg/dL High Triglyceride: 200-499 mg/dL Very High Triglyceride: greater than or equal to 5OO mg/dL Cholesterol 171 <200 mg/dL Desirable Cholesterol: less than 200 mg/dL Borderline High Cholesterol: 200-239 mg/dL High Cholesterol: greater than 239 mg/dL LDL Calculated 80 <100 mg/dL Desirable LDL: less than 100 mg/dL Near Optimal/Above Optimal LDL: 110-129 mg/dL Borderline High LDL: 130-159 mg/dL High LDL: 160-189 mg/dL Very High LDL: greater than or equal to 190 mg/dL HDL 68 >40 mg/dL Desirable HDL: greater than 40 mg/dL Note: This HDL assay may give artificially low results in patients with liver disease. Alk Phos 66 39-117 U/L Vitamin D 25-OH 67.4 >30 ng/mL Health Based Reference Values* < 20 ng/mL Deficient 20-30 ng/mL Insufficient > 30 ng/mL Sufficient Laboratory Tests 11/11/24 04/07/25 09:22 07:56 Estimat Average Glucose 146 Hemoglobin A1c % 6.7 H Urine Creatinine 177.71 Urine Microalbumin 10.0 Microalb/Creat Ratio 5.6 Coding Level of Care Code Est Pt Level 4 (66337) Complex EM visit Add On G2211 Diagnoses Iron deficiency anemia, unspecified iron deficiency anemia type D50.9 Iron deficiency anemia type: unspecified iron deficiency Diabetes mellitus with hyperglycemia, without long-term current use of insulin E11.65 Dyslipidemia E78.5 Essential hypertension I10 Immunization declined Z28.21 Generalized anxiety disorder F41.1 Colon cancer screening declined Z53.20 Additional Codes PERRY-7 Assessment Billing - PERRY-7 Assessment Tool: PERRY-7 Assessment 65178 ([id number]) PHQ-9 - 50379 - PHQ-9 Billing: Yes ([id number]) Assessment & Plan Assessment & Plan (1) Iron deficiency anemia: Code(s): D50.9 - Iron deficiency anemia, unspecified Category: Medical Qualifiers: Iron deficiency anemia type: unspecified iron deficiency Qualified Code(s): D50.9 - Iron deficiency anemia, unspecified Plan: Discuss results of recent CBC and iron profile with patient, indicative of severe iron-deficiency anemia. Patient again reminded to take her iron supplements daily,, is afraid of getting constipated, advised to take docusate sodium 100-200 mg daily to soften stool, may take an occasional senna as needed for constipation. Advised to get colon cancer screening either through colonoscopy or if it Cologuard but patient does not want to get get either testing will repeat another CBC, iron profile ferritin level in 3 months (2) Diabetes mellitus with hyperglycemia, without long-term current use of insulin: Code(s): E11.65 - Type 2 diabetes mellitus with hyperglycemia Category: Medical Plan: Continue metformin 1000 mg 1 tablet twice a day reinforced importance of adhering to healthy eating habits and regular exercise, reminded patient to get her yearly diabetes eye screening to check for retinopathy. Declined flu vaccine pneumonia vaccine offered on this visit (3) Dyslipidemia: Code(s): E78.5 - Hyperlipidemia, unspecified Category: Medical Plan: Reviewed recent fasting lipid profile with patient with levels within normal limits . Continue atorvastatin 20 mg daily , in addition to adherence to low-cholesterol diet and regular exercise, at least 30 minutes 3 to 4 times a week. Advised patient to make healthy food choices, eat more fruits, vegetables, whole grains, wild caught fish and low-fat dairy. Limit amount of meat and fried or fatty food products, as well as processed foods and fast foods. Follow-up scheduled with repeat fasting lipid panel in 3 months. (4) Essential hypertension: Code(s): I10 - Essential (primary) hypertension Category: Medical Plan: Continue lisinopril 10 mg daily (5) Immunization declined: Code(s): Z28.21 - Immunization not carried out because of patient refusal Category: Medical Plan: Patient refused all recommended vaccines (6) Generalized anxiety disorder: Code(s): F41.1 - Generalized anxiety disorder Category: Medical Plan: Patient declined taking any maintenance medication, does not want hydroxyzine due to the sedating effects of the medication. Prescription sent for a short course of lorazepam 0.5 mg to take 1 tablet as needed for acute anxiety attacks, 10 tablets prescribed with no refill (7) Colon cancer screening declined: Code(s): Z53.20 - Procedure and treatment not carried out because of patient's decision for unspecified reasons Category: Medical Plan: Patient does not want to get any colonoscopy procedure or Cologuard testing done Orders: Orders Lipid Panel 07/18/25 D50.9 - Iron deficiency anemia, unspecified, E11.65 - Type 2 diabetes mellitus with hyperglycemia, E78.5 - Hyperlipidemia, unspecified, F41.1 - Generalized anxiety disorder, I10 - Essential (primary) hypertension, Z28.21 - Immunization not carried out because of patient refusal, Z53.20 - Procedure and treatment not carried out because of patient's decision for unspecified reasons Complete Blood Count Auto Diff 07/18/25 D50.9 - Iron deficiency anemia, unspecified, E11.65 - Type 2 diabetes mellitus with hyperglycemia, E78.5 - Hyperlipidemia, unspecified, F41.1 - Generalized anxiety disorder, I10 - Essential (primary) hypertension, Z28.21 - Immunization not carried out because of patient refusal, Z53.20 - Procedure and treatment not carried out because of patient's decision for unspecified reasons Ferritin 07/18/25 D50.9 - Iron deficiency anemia, unspecified, E11.65 - Type 2 diabetes mellitus with hyperglycemia, E78.5 - Hyperlipidemia, unspecified, F41.1 - Generalized anxiety disorder, I10 - Essential (primary) hypertension, Z28.21 - Immunization not carried out because of patient refusal, Z53.20 - Procedure and treatment not carried out because of patient's decision for unspecified reasons IRON PROFILE 07/18/25 D50.9 - Iron deficiency anemia, unspecified, E11.65 - Type 2 diabetes mellitus with hyperglycemia, E78.5 - Hyperlipidemia, unspecified, F41.1 - Generalized anxiety disorder, I10 - Essential (primary) hypertension, Z28.21 - Immunization not carried out because of patient refusal, Z53.20 - Procedure and treatment not carried out because of patient's decision for unspecified reasons Alanine Aminotransferase 07/18/25 D50.9 - Iron deficiency anemia, unspecified, E11.65 - Type 2 diabetes mellitus with hyperglycemia, E78.5 - Hyperlipidemia, unspecified, F41.1 - Generalized anxiety disorder, I10 - Essential (primary) hypertension, Z28.21 - Immunization not carried out because of patient refusal, Z53.20 - Procedure and treatment not carried out because of patient's decision for unspecified reasons Basic Metabolic Panel Fasting 07/18/25 D50.9 - Iron deficiency anemia, unspecified, E11.65 - Type 2 diabetes mellitus with hyperglycemia, E78.5 - Hyperlipidemia, unspecified, F41.1 - Generalized anxiety disorder, I10 - Essential (primary) hypertension, Z28.21 - Immunization not carried out because of patient refusal, Z53.20 - Procedure and treatment not carried out because of patient's decision for unspecified reasons Aspartate Amino Transferase 07/18/25 D50.9 - Iron deficiency anemia, unspecified, E11.65 - Type 2 diabetes mellitus with hyperglycemia, E78.5 - Hyperlipidemia, unspecified, F41.1 - Generalized anxiety disorder, I10 - Essential (primary) hypertension, Z28.21 - Immunization not carried out because of patient refusal, Z53.20 - Procedure and treatment not carried out because of patient's decision for unspecified reasons Hemoglobin A1c 07/18/25 D50.9 - Iron deficiency anemia, unspecified, E11.65 - Type 2 diabetes mellitus with hyperglycemia, E78.5 - Hyperlipidemia, unspecified, F41.1 - Generalized anxiety disorder, I10 - Essential (primary) hypertension, Z28.21 - Immunization not carried out because of patient refusal, Z53.20 - Procedure and treatment not carried out because of patient's decision for unspecified reasons Vitamin D 25-OH Total 07/18/25 D50.9 - Iron deficiency anemia, unspecified, E11.65 - Type 2 diabetes mellitus with hyperglycemia, E78.5 - Hyperlipidemia, unspecified, F41.1 - Generalized anxiety disorder, I10 - Essential (primary) hypertension, Z28.21 - Immunization not carried out because of patient refusal, Z53.20 - Procedure and treatment not carried out because of patient's decision for unspecified reasons Medications: New lorazepam 0.5 mg PO DAILY PRN 10 tabs 0RF anxiety ferrous fumarate 324 mg PO DAILY 90 tabs 0RF
[2025-04-29 09:33] VITALS: BP 144/80; PULSE 96; RESP 16; TEMP 37; O2SAT 100; BMI 25.2
== END 2025-04-29 12:30 | disposition home or self-care (01) ==
LOC: HO.HMCC 09:31
PROVIDERS: PCP Internal Medicine; Visit Provider Internal Medicine
DX: D50.9 Iron deficiency anemia, unspecified (principal); E11.65 Type 2 diabetes mellitus with hyperglycemia; E78.5 Hyperlipidemia, unspecified; I10 Essential (primary) hypertension; Z28.21 Immunization not carried out because of patient refusal; F41.1 Generalized anxiety disorder; Z53.20 Procedure and treatment not carried out because of patient's decision for unspecified reasons

== ENCOUNTER → 2025-04-29 09:31 | Outpatient (BNVA) | payer OTHER, SELFPAY | PROVIDERS: PCP Internal Medicine; Visit Provider Internal Medicine | DX: E11.65 Type 2 diabetes mellitus with hyperglycemia (principal); R53.83 Other fatigue; E78.5 Hyperlipidemia, unspecified; F41.1 Generalized anxiety disorder; D50.9 Iron deficiency anemia, unspecified; I10 Essential (primary) hypertension; Z28.21 Immunization not carried out because of patient refusal; Z53.20 Procedure and treatment not carried out because of patient's decision for unspecified reasons | CPT/HCPCS: 96127 ==